=== PATIENT | female | born 1940 | race Caucasian/White ===

== ENCOUNTER 2016-09-23 12:01 | Observation (INO) | payer MEDICARE ==
[2016-09-23] MEDS ORDERED: 0.9 % SODIUM CHLORIDE 1,000 ML BAG IV ONE (12:21)
[2016-09-23] MEDS ORDERED: ONDANSETRON HCL IV 4 MG/2 ML VIAL IVP ONE (12:21)
--- NOTE | 2016-09-23 12:25 | Emergency Department Record ---
History of Present Illness - General Chief complaint: Fatigue and Weakness Stated complaint: weakness, cough, nausea Time Seen by Provider: 09/23/16 12:14 Source: Patient, Family Mode of Arrival: EMS Limitations: No limitations - History of Present Illness Initial comments: The patient is here due to generalized weakness all over for about a week. She now has had nausea and vomiting for 2 days. Per the daughter the patient has vomited 3 times today and the nausea has actually been present for about a week. The patient was recently in the hospital about 2 weeks ago for 5 days due to a viral pneumonia. She basically has not felt well since. MD Complaint: Generalized weakness Onset/Timin -: Days(s) Location: Generalized Severity: Moderate Severity scale (1-10): 4 Quality: Aching Consistency: Constant Context: Recent illness - [place] Coma Scale Eye Response: (4) Open spontaneously Motor Response: (6) Obeys commands Verbal Response: (5) Oriented [place] Total: 15 - Related Data Home Medications Medication Instructions Recorded Confirmed Last Taken Epinephrine [Epipen] 0.3 mg IJ ONCE PRN 05/29/14 09/05/16 1 Day Ago Felodipine [Felodipine ER] 2.5 mg PO DAILY #30 08/13/16 09/23/16 1 Day Ago Gabapentin 300 mg PO DAILY #120 08/13/16 09/23/16 1 Day Ago Losartan/Hydrochlorothiazide 1 tab PO DAILY #30 08/13/16 09/23/16 1 Day Ago [Losartan-Hctz 50-12.5 mg Tab] Mexiletine HCl 150 mg PO QHS #30 08/13/16 09/23/16 1 Day Ago Gabapentin [Neurontin] 900 mg PO QHS 09/05/16 09/23/16 1 Day Ago Buspirone HCl [Buspar] 30 mg PO BID 09/09/16 09/23/16 1 Day Ago Meclizine HCl [Antivert] 25 mg PO Q8H PRN 09/23/16 09/23/16 1 Day Ago Previous Rx's Medication Instructions Recorded Benzonatate [Tessalon Perles] 100 mg PO TID PRN #60 capsule 09/10/16 Ipratropium/Albuterol Sulfate 1 puff INH RESP.Q4H PRN #1 inhaler 09/10/16 [Combivent] Allergies Allergy/AdvReac Type Severity Reaction Status Date / Time aspirin Allergy HIVES Verified 09/23/16 12:03 codeine Allergy ALTERED Verified 09/23/16 12:03 MENTAL STATUS iodine Allergy HIVES Verified 09/23/16 12:03 meperidine HCl [From Demerol] Allergy ALTERED Verified 09/23/16 12:03 MENTAL STATUS Penicillins Allergy HIVES Verified 09/23/16 12:03 propoxyphene HCl Allergy ALTERED Verified 09/23/16 12:03 [From Darvon] MENTAL STATUS Sulfa (Sulfonamide Allergy HIVES Verified 09/23/16 12:03 Antibiotics) Travel Screening - Travel/Exposure Within Last 30 Days Have you traveled within the last 30 days?: No - Travel/Exposure Within Last Year Have you traveled outside the [place] in the last year?: No - Additonal Travel Details Have you been exposed to anyone with a communicable illness?: No - Travel Symptoms Symptom Screening: None Review of Systems Constitutional: Denies: Chills, Fever Eyes: Denies: Eye discharge ENT: Denies: Congestion Respiratory: Denies: Cough, Dyspnea Past Medical History - SOCIAL HISTORY Smoking Status: Never smoker Alcohol Use: None Drug Use: None - RESPIRATORY Hx Respiratory Disorders: Yes Hx Bronchitis: Yes (last winter) Hx Sleep Apnea: Yes - CARDIOVASCULAR Hx Cardio Disorders: Yes Hx Cardiac Cath: Yes (2013) Hx Hypertension: Yes Comment:: negative heart cath, echo last week and will see 01/02 for clearance - NEURO Hx Neuro Disorders: No Hx Seizures: No - GI Hx GI Disorders: Yes Hx Pancreatitis: Yes Comment:: "dome" per Pt. - Hx Genitourinary Disorders: Yes Hx Bladder Problem: Yes (stress incontinence) Hx Renal Disease: No Hx UTI: Yes Comment:: blood vessel sx removed around rt kidney 1960 - ENDOCRINE Hx Endocrine Disorders: No - MUSCULOSKELETAL Hx Musculoskeletal Disorders: Yes Hx Arthritis: Yes Hx Fibromyalgia: Yes - PSYCH Hx Psych Problems: Yes Hx Anxiety: Yes - HEMATOLOGY/ONCOLOGY Hx Hematology/Oncology Disorders: Yes Hx Anemia: No Hx Bruising: No (bruises easily) Hx Blood Transfusions: No Family Medical History Any Significant Family History?: Yes Hx Heart Disease: Mother Hx HTN: Father, Mother Physical Exam - General General Appearance: Alert, Oriented x3, Cooperative, No acute distress - Head Head exam: Atraumatic, Normocephalic, Normal inspection - Eye Eye exam: Normal appearance, PERRL - ENT Throat exam: Normal inspection. negative: Tonsillar erythema, Tonsillar exudate - Neck Neck exam: Normal inspection, Full ROM. negative: Tenderness - Respiratory Respiratory exam: Normal lung sounds bilaterally. negative: Respiratory distress - Cardiovascular Cardiovascular Exam: Regular rate, Normal rhythm, Normal heart sounds - GI/Abdominal GI/Abdominal exam: Soft, Normal bowel sounds. negative: Tenderness - Extremities Extremities exam: Normal inspection, Full ROM, Normal capillary refill. negative: Tenderness - Neurological Neurological exam: Alert, Oriented X3. negative: Motor sensory deficit - Psychiatric Psychiatric exam: negative: Anxious, Depressed - Skin Skin exam: negative: Rash Course Vital Signs 09/23/16 12:09 Temperature 98.2 F Pulse Rate 97 H Respiratory 18 Rate Blood Pressure 102/80 Pulse Ox 97 - Reevaluation(s) Reevaluation #1: The patient is doing better at this time and has much less nausea. She denies any CP, AP, or any trouble breathing. Due to her level of deconditioning I do feel she should be admitted to the hospital and possibly placed in the swing bed area. I did discuss the case with Dr. Lucio and he agrees with the plan. 09/23/16 16:22 Medical Decision Making - Data Complexity MDM Data: Labs Ordered and/or Reviewed, X-Ray Ordered and/or Reviewed, EKG Ordered and/or Reviewed - Lab Data Result diagrams: 09/23/16 14:05 09/23/16 14:25 - EKG Data -: EKG Interpreted by Me EKG: No Acute Changes, Unchanged From Previous - Radiology Data Radiology results: Report reviewed (CXR: Neg acute changes.) Disposition Disposition: Admit Clinical Impression: Physical deconditioning Nausea and vomiting Qualifiers: Vomiting type: unspecified Vomiting Intractability: non-intractable Qualified Code(s): R11.2 - Nausea with vomiting, unspecified Decision to Admit: Admit from ER Decision to Admit Date: 09/23/16 Decision to Admit Time: 16:24 Accepting Physician: Khadijah Time Discussed w/Accepting Physician: 16:24 Forms: Patient Portal Access Time of Disposition: 16:24
[2016-09-23] MEDS ORDERED: ONDANSETRON 4 MG ODT TABLET SL ONE (12:38)
[2016-09-23 14:36] LABS: BASO % 0.5 % (0-6); EOS % 1.1 % (0-6); GRAN % 77.9 % (47-80); HEMATOCRIT 49.3 % (35.0-47.0); HEMOGLOBIN 16.5 gm/dl (11.6-16.0); LYMPH % 10.8 % (16-45); MEAN CELL VOLUME 91.8 fl (81-97); MEAN CORPUSCULAR HEMOGLOBIN 30.7 pg (27-33); MEAN CORPUSCULAR HGB CONC 33.5 g/dl (32-36); MEAN PLATELET VOLUME 11.8 fl (7.4-10.4); MONO % 9.7 % (0-9); PLATELET COUNT 375 K/uL (130-400); RED BLOOD COUNT 5.37 M/uL (3.80-5.40); RED CELL DISTRIBUTION WIDTH 15.3 % (11.5-14.5); WHITE BLOOD COUNT W/O DIFF 8.6 K/uL (4.2-12.2)
[2016-09-23 14:48] LABS: ALB/GLOB RATIO 1.3 (1.1-1.8); ALBUMIN 4.3 gm/dL (3.5-5.0); ALKALINE PHOSPHATASE 107 U/L (38-126); ALT/SGPT 26 U/L (9-52); ANION GAP 11.4 (7-16); AST/SGOT 25 U/L (14-36); BILIRUBIN,TOTAL 0.92 mg/dL (0.2-1.3); BLOOD UREA NITROGEN 21 mg/dL (7-17); CARBON DIOXIDE 25.6 mmol/L (22-30); CREATINE PHOSPHOKINASE 30 U/L (30-135); CREATININE 0.8 mg/dL (0.52-1.04); EST GLOMERULAR FILTRATION RATE > 60 ml/min; GLUCOSE,RANDOM 120 mg/dL (70-110); TOTAL PROTEIN 7.7 gm/dL (6.3-8.2)
[2016-09-23 15:00] LABS: CKMB 0.6 ug/L (0-6); TROPONIN I < 0.012 ng/mL (0.00-0.034)
[2016-09-23 16:18] LABS: URINE APPEARANCE CLEAR; URINE BILIRUBIN SMALL (NEGATIVE); URINE BLOOD NEGATIVE (NEGATIVE); URINE COLOR YELLOW; URINE GLUCOSE (UA) NEGATIVE (NEGATIVE); URINE KETONE TRACE (NEGATIVE); URINE LEUKOCYTE ESTERASE NEGATIVE (NEGATIVE); URINE NITRITE NEGATIVE (NEGATIVE); URINE UROBILINOGEN 0.2 E.U./dL (0.20 - 1.00)
[2016-09-23 16:25] LABS: URINE BACTERIA FEW; URINE EPITHELIAL CELLS 0 - 2 (FEW); URINE MUCUS LIGHT; URINE RBC 0 - 2 (NONE SEEN); URINE WBC 0 - 2 (0-2/hpf)
[2016-09-23] MEDS ORDERED: ACETAMINOPHEN 325 MG TAB PO ONE (16:26)
[2016-09-23] MEDS ORDERED: ONDANSETRON HCL IV 4 MG/2 ML VIAL IVP PRN (18:22)
[2016-09-23] MEDS ORDERED: 0.9 % SODIUM CHLORIDE 1000ML 1,000 ML IV PRN (18:22)
[2016-09-23] MEDS ORDERED: MECLIZINE 25 MG TABLET PO PRN (18:22)
[2016-09-23] MEDS: MEXILETINE 150 MG PO SCH ×2 (20:28→22:41)
[2016-09-23] MEDS ORDERED: GABAPENTIN 300 MG CAPSULE PO SCH (22:00)
[2016-09-23] MEDS ORDERED: MEXILETINE HCL 150 MG PO SCH (22:00)
[2016-09-23] MEDS ORDERED: BUSPIRONE HCL 30 MG PO SCH (22:00)
[2016-09-23] MEDS ORDERED: BUSPIRONE 5 MG TABLET PO SCH ×2 (22:00)
[2016-09-24] MEDS: ACETAMINOPHEN 500 MG TABLET PO PRN ×2 (00:48→09:23)
--- NOTE | 2016-09-24 07:18 | RADIOLOGY REPORT ---
EXAM: CHEST, TWO VIEWS HISTORY: DIFFICULTY IN BREATHING. TECHNIQUE: Frontal and lateral views of the chest were performed. Comparison: 09/09/16. FINDINGS: The heart size is at the upper limits of normal. No pulmonary vascular congestion. No infiltrate or pleural effusion. Mild degenerative change of the thoracic spine and left shoulder girdle. IMPRESSION: NO ACUTE DISEASE PROCESS. JOB NUMBER: [id number] MTDD
[2016-09-24] MEDS ORDERED: 0.9 % SODIUM CHLORIDE 1000ML 1,000 ML IV ONE (08:31)
[2016-09-24] MEDS ORDERED: HYDROCHLOROTHIAZIDE PO SCH (10:00)
[2016-09-24] MEDS ORDERED: HYDROCHLOROTHIAZIDE 12.5 MG CAPSULE PO SCH (10:00)
[2016-09-24] MEDS ORDERED: FELODIPINE 2.5 MG PO SCH ×2 (10:00)
[2016-09-24] MEDS ORDERED: GABAPENTIN 300 MG CAPSULE PO SCH (10:00)
[2016-09-24] MEDS ORDERED: LOSARTAN POTASSIUM 25 MG TABLET PO SCH (10:00)
[2016-09-24] MEDS ORDERED: BUSPIRONE 5 MG TABLET PO SCH (10:00)
[2016-09-24] MEDS ORDERED: ENOXAPARIN 40 MG/0.4 ML SYR SQ SCH (10:00)
[2016-09-24] MEDS ORDERED: LOSARTAN PO SCH (10:00)
--- NOTE | 2016-09-24 12:53 | History and Physical Report ---
CHIEF COMPLAINT: Nausea, vomiting, and diarrhea. HISTORY OF PRESENT ILLNESS: This 76-year-old female presented to the Emergency Department stating she had generalized weakness for the last week. She had nausea and vomiting for two days prior to admission. Her daughter stated she vomited three times on the day of admission last night. She has not been feeling well for the last week. Actually she was in the hospital about two weeks ago and had influenza pneumonia. The chest x-ray was normal then, however , she did have a positive influenza PCR test during that admission. She states since that hospitalization which started about 09/05/16 through about 09/17/16. She saw her primary doctor. She was still coughing at that time and he placed her on an antibiotic twice a day, she does not remember the name of the antibiotic, but stopped it two days ago. She felt it was making her nauseated and causing the vomiting. She is feeling better today at my evaluation. An IV was stated, she was a very difficult IV start in the Emergency Department and the nurse entry level project engineer had to come down to the Emergency Department to start the IV in her thumb. She has not had any vomiting or diarrhea, only a small amount of nausea since she was admitted to the hospital yesterday at about 5:00 p.m. She is asking to go home today. Her chest x-ray is showing no acute process. She does not use oxygen at home. Her primary doctor is Dr. Jey Henriquez. PAST MEDICAL HISTORY: Recent episode of influenza, she was admitted at our hospital approximately two to three weeks ago. She has hypertension, history of pancreatitis, stress incontinence of the urine, she had some sort of surgery around her right kidney in 196, she has arthritis, fibromyalgia, and anxiety. PAST SURGICAL HISTORY: She had a hearth catheterization which was negative in December of 2015, she also had an echocardiogram last week and is yet to get a follow-up with her doctor on that, she had an appendectomy, , hysterectomy, and back surgery. MEDICATIONS ON ADMISSION: Buspar 15 mg twice a day, Antivert 25 mg q eight hours prn, Mexiletine hydrochloric 150 at h.s., Losartan/Hydrochlorothiazide 50/ 12.5 once a day, Neurontin 300 mg in the morning and 900 mg at night - I will have to confirm that as it seems to be a very large amount, Felodipine 2.5 mg once a day, and Combivent one puff every four hours prn. ALLERGIES: ASPIRIN, CODEINE, IODINE, DEMEROL, PENICILLIN, DARVON, AND SULFA. FAMILY/PSYCHOSOCIAL HISTORY: Mother has heart disease. Father and mother had hypertension. She never smoked cigarettes. No alcohol or drug use. REVIEW OF SYSTEMS: HEENT: Currently no upper respiratory infectious symptoms. Cardiovascular: No chest pain, palpitations or arrhythmias. Respiratory: No cough, cold, or congestion. She is doing much better versus when she was in the hospital here when she had a severe cough. Gastrointestinal: See chief complaint. She did have vomiting and diarrhea yesterday, but none since admitted to the hospital here and she is feeling much better. Genitourinary: No dysuria, hematuria, frequency, or burning on urination. Musculoskeletal: She has diffuse joint and muscle pains from her fibromyalgia and her arthritis. Neurologic: No CVA, paralysis, or paresthesias. Gynecological: No abnormal lumps in her breasts or abnormal vaginal bleeding. Endocrine: No diabetes or thyroid disease. Integument: No rash, change in moles, or yellow skin. PHYSICAL EXAMINATION: Height is 5'2", weight is 192 pounds. Vital signs - Temperature is 98.3, pulse is 83, blood pressure is 145/85, respiratory rate is 18, pulse ox on room air is 94%. HEENT: Pupils are equal, round and reactive to light and accommodation. Extraocular muscles are intact. Funduscopic examination is negative. Tympanic membranes are dickinson. Nose is clear. Throat is clear. NECK: Supple. No jugular venous distention. No hepatojugular reflex. No carotid bruits. Thyroid smooth. CARDIOVASCULAR: Regular rate and rhythm without murmurs, clicks, rubs or gallops. RESPIRATORY: Clear to auscultation and percussion. ABDOMEN: Soft, nontender. No hepatosplenomegaly. Bowel sounds are present. EXTREMITIES: No pitting edema. No cyanosis. There is pain when you palpate her legs because of her fibromyalgia. She says that pain is always there. BREASTS: Deferred. GYNECOLOGICAL: Deferred. RECTAL: Deferred. NEUROLOGICAL: Cranial nerves II through XII intact. No gross defects. Sensation normal. Strength normal. Deep tendon reflexes equal bilaterally. Babinski's negative. MENTAL STATUS: Alert and oriented times three. IMPRESSION: 1. VOMITING AND DIARRHEA MOST LIKELY SECONDARY TO INFLUENZA OR POSSIBLY THE USE OF AN ANTIBIOTIC. 2. DEHYDRATION RESOLVING AFTER IV FLUIDS. 3. WEAKNESS RESOLVING. PLAN: We will have Physical Therapy work with her today to see how she does, she wants to go home today, we might discharge her tonight if she is continuing to do well. We will see how she does with fluids. She is on a clear liquid diet and we will advance as tolerated. Noe Lucio D.O. Date & Time JOB NUMBER: [id number] MTDD
--- NOTE | 2016-09-24 12:58 | Discharge Note ---
VTE H&P Assessment - Risk for VTE Risk for VTE: No Risk Level: Moderate Risk Assessment Date: 09/24/16 Risk Assessment Time: 08:00 VTE Orders Placed or Will Be Placed: Yes Discharge Medications - Discharge Medications Home Medications: Ambulatory Orders Epinephrine [Epipen] 0.3 mg IJ ONCE PRN 05/29/14 [Last Taken 1 Day Ago] Felodipine [Felodipine ER] 2.5 mg PO DAILY #30 08/13/16 [Last Taken 1 Day Ago] Gabapentin 300 mg PO DAILY #120 08/13/16 [Last Taken 1 Day Ago] Losartan/Hydrochlorothiazide [Losartan-Hctz 50-12.5 mg Tab] 1 tab PO DAILY #30 08/13/16 [Last Taken 1 Day Ago] Mexiletine HCl 150 mg PO QHS #30 08/13/16 [Last Taken 1 Day Ago] Gabapentin [Neurontin] 900 mg PO QHS 09/05/16 [Last Taken 1 Day Ago] Buspirone HCl [Buspar] 15 mg PO BID 09/09/16 [Last Taken 1 Day Ago] Ipratropium/Albuterol Sulfate [Combivent] 1 puff INH RESP.Q4H PRN #1 inhaler [Last Taken 1 Day Ago] Meclizine HCl [Antivert] 25 mg PO Q8H PRN 09/23/16 [Last Taken 1 Day Ago] Discharge Note - Date Date of Discharge Note: 09/24/16 Condition: (2) Stable Additional Instructions: follow up with dr. Henriquez in 5-7 days Forms: Patient Portal Access
--- NOTE | 2016-09-24 18:24 | Rehab Evaluation ---
Patient Information - Patient Information Diagnosis: Fatigue/weakness due to nausea and vomiting x 2 days Ordered Treatment: PT Evaluate and Treat Status: Initial Evaluation Surgery: No History: Detail (Pt was admitted from ED on 09/23/16, changed to observation status today, due to profound weakness and fatigue that had progressed over the past week. She had been in hospital two weeks ago w/influenza, hospitalized x 5 days. She feels that she had not fully recovered from that.) Past Medical/Surgical Hx: PAST MEDICAL/SURGICAL HISTORY Past Surgical History Cardiac Cath appendix hysterectomy back surgery walt rt kidney sx byron ring implant/removal CATS carpal tunnel right knee replacement PMH - Respiratory Hx Respiratory Disorders Yes Hx Bronchitis Yes: last winter Hx Sleep Apnea Yes PMH - Cardiovascular Hx Cardiovascular Disorders Yes Hx Cardiac Catheterization Yes: 2013 Hx Hypertension Yes Comment: negative heart cath, echo last week and will see 01/02 for clearance PMH - Neuro Hx Neurological Disorders No Hx Seizures No PMH - GI Hx Gastrointestinal Disorders Yes Hx Pancreatitis Yes Comment: "dome" per Pt. 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 She states that she is normally quite active, doesn't use assistive device for ambulation. She reports having had one fall in the last six months, when she tripped over one of her cats lying on the step to go into the house.) Social History: Detail (Pt lives in a ranch home with a basement, with her adult daughter and two grandsons, one in college, one finishing high school this year. She is alone at home most of the time during the day, but has help from other friends as needed. She states she only needs transportation assist and not any physical assistance for ADLs.) Precautions: [place], Fall - Time With Patient Total Time Spent With Patient (Min): 40 Treatment Procedures: Detail (PT evaluation) Subjective Information - Subjective Information Per Patient (Pt states that she is feeling much better than when she presented to ED; has had no nausea/vomiting. Anticipates being discharged home later today. Watching baseball game on TV and texting w/a family member upon arrival , but cooperative for PT evaluation. Denied pain.) Objective Data - Pain Pain Present: No - Mental Status Patient Orientation: Oriented x3 - Visual Perception Appears within normal limits for therapeutic activities - ROM Within normal limits - Strength/Tone Not within normal limits (Grossly good strength in upper extremities. 4/5 strength in B hip flexion, adduction, abduction, L knee flexion and extension; 4 -/5 B hip extension, R knee flexion and extension; 4+/5 B ankle dorsiflexion.) - Coordination Appears within normal limits for therapeutic activities - Bed Mobility Independent - Transfers Independent - Balance Balance Sitting: Good Balance Standing: Fair (Completed Mari Balance test, scored 30/56. Fearful of eliciting vertigo, which she has had in the past. Fatigued w/prolonged standing , became more unsteady the longer she stood.) - Sensation Intact - Gait Detail (Ambulated a few feet w/in room w/o assistive device, w/SBA. Pt tends to reach for table, wall, bed to steady self.) Therapy Assessment - Therapy Assessment Detail (Pt exhibits general lower extremity weakness, impaired balance, and decreased tolerance to physical activity. She is a good candidate for outpatient physical therapy.) Problem List - Problem List Physical Therapy Problem List: Detail (1. Impaired balance 2. Lower extremity weakness 3. Decreased activity tolerance.) Goals - Goals Physical Therapy Goals: None formulated; patient is being discharged home this afternoon. She is agreeable to outpatient physical therapy. Prognosis - Prognosis Good Plan - Plan Physical Therapy Plan: Patient is discharged from physical therapy at this time ; [facility] obtained order for outpatient physical therapy from Dr. Lucio and will be instructing patient's daughter to call outpatient rehab to schedule appointment next week.
--- NOTE | 2016-09-25 17:07 | Discharge Summary ---
DATE OF ADMISSION: 09/23/2016 DATE OF DISCHARGE: 09/24/2016 DISCHARGE DIAGNOSES: 1. Dehydration, resolved. 2. Vomiting and diarrhea, resolved. 3. Weakness, resolved. 4. History of influenza about 2-3 weeks ago. 5. Possible gastroenteritis. ATTENDING PHYSICIAN: Noe Lucio DO REASON FOR HOSPITALIZATION: This 76-year-old female presented to the Emergency Department because of weakness, vomiting, diarrhea, and nausea. Evaluated by Dr. Patel, who felt she was too weak with too much vomiting and diarrhea to go home. He put her in the hospital for further evaluation. Patient stopped vomiting. No diarrhea since admission, and will switch her admission to an observation admission. Patient is doing much better at my evaluation. SIGNIFICANT FINDINGS FROM EXAMINATION: Chest x-ray showing no acute findings. LABORATORY: WBC 8600. Hemoglobin 16.5. BUN 21. Creatinine 0.8. Urine negative, showing signs of dehydration, specific gravity of 1025. Trace ketones. THERAPY: IV fluids. She is doing much better walking around the room, using the bathroom, up and eating, and not having any troubles with nausea, vomiting or diarrhea. HOSPITAL COURSE: Gradually improved. CONDITION AT DISCHARGE: Much improved. DISCHARGE INSTRUCTIONS: Follow up with Dr. Henriquez in 5-7 days. Diet as tolerated. Continue her home medications. CC: Jey Henriquez MD [facility]ITAL[facility]ie
== END 2016-09-24 15:25 | disposition home or self-care (01) ==
LOC: ER 12:01 → MEDSURG 17:08 → INTOOBSV 17:08
PROVIDERS: ADMIT Emergency Medicine; ATTEND Emergency Medicine
DX: E86.0 Dehydration (principal); R19.7 Diarrhea, unspecified; R11.10 Vomiting, unspecified; R53.1 Weakness
CPT/HCPCS: 71020; 80053; 81001; 82550; 82553; 83690; 84484; 85025; 93005; 93010; 94620; 96374; 99217; 99220; 99285; J1650; J2405; J7030